=== PATIENT | female | born 1990 | race Caucasian/White ===

== ENCOUNTER 2019-03-24 20:41 | Emergency (ER) | payer MEDICAID ==
[~2019-03-24] VITALS: Ht 144.8 cm; Wt 53.9 kg
[~2019-03-24 20:41] MED LIST: AZIT250T PO; IBUP800T48 PO; PREN1TAB79 PO
[2019-03-24 20:56] VITALS: Ht 144.8 cm; Wt 53.9 kg
[2019-03-24] MEDS ORDERED: ACETAMINOPHEN 325 MG TAB PO ONE (22:30)
[2019-03-25 01:07] VITALS: BP 100/68; PULSE 77; RESP 20
== END 2019-03-25 01:08 | disposition home or self-care (01) ==
LOC: FTE 20:41
DX: R10.9 Unspecified abdominal pain (principal)
CPT/HCPCS: 74176; 80048; 81001; 81025; 85025; Z7502; Z7610